=== PATIENT | male | born 1930 | race Caucasian/White ===

== ENCOUNTER 2019-05-08 10:07 | Day surgery (SDC) | payer OTHER ==
[~2019-05-08] VITALS: Ht 167.6 cm; Wt 63.5 kg
[~2019-05-08 10:07] MED LIST: ASCO500 PO; Amlodipine Bes2.5 MG PO; LOSA50 PO
--- NOTE | 2019-05-08 11:34 | NUR ---
05/08/19 1134 Jessica Watson TIME OUT AND SITE CHECK AT 1130.
== END 2019-05-08 12:40 | disposition home or self-care (01) ==
LOC: ORSCSDS 10:07
PROVIDERS: Orthopaedic Surgery
PROC: 01N54ZZ Release Median Nerve, Percutaneous Endoscopic Approach (ICD-10-PCS; principal; 2019-05-08 11:15)
DX: G56.01 Carpal tunnel syndrome, right upper limb (principal); I10 Essential (primary) hypertension; Z79.899 Other long term (current) drug therapy
CPT/HCPCS: J0690; J2250; J3010; J7030; J7120